=== PATIENT | female | born 1955 | race Caucasian/White ===

== ENCOUNTER 2018-09-19 20:29 | Emergency (ER) | payer OTHER ==
[~2018-09-19] VITALS: Ht 157.5 cm; Wt 63.0 kg
[~2018-09-19 20:29] MED LIST: LISI-661 PO; METF-960 PO
[2018-09-19 20:44] VITALS: BP 152/86
[2018-09-19] MEDS ORDERED: METF-960 PO (20:52)
[2018-09-19] MEDS ORDERED: LISI-662 PO (20:52)
[2018-09-19] MEDS ORDERED: ASPI81 PO (20:52)
[2018-09-19 21:04] LABS: GLUCOSE,POINT OF CARE 192 MG/DL (70-110)
== END 2018-09-19 21:15 | disposition left against medical advice (07) ==
LOC: EMS 20:30
DX: I10 Essential (primary) hypertension (principal); Z53.21 Procedure and treatment not carried out due to patient leaving prior to being seen by health care provider